=== PATIENT | female | born 1945 | race Caucasian/White ===

== ENCOUNTER 2016-09-08 22:34 | Inpatient (IN) | payer MEDICARE, OTHER ==
[~2016-09-08] VITALS: Ht 155.4 cm; Wt 46.2 kg
[2016-09-13] MEDS ORDERED: COENZYME Q1010 MG PO (11:27)
[2016-09-13] MEDS ORDERED: VITAMIN D2000 UNI1 PO (11:27)
[2016-09-13] MEDS ORDERED: MIRALAX PACKET17 GM PO (11:28)
[2016-09-13] MEDS ORDERED: NORMAL SALINE FL5 ML IV (11:28)
[2016-09-13] MEDS ORDERED: DAILY MULTIPLE1 EAC1 PO (11:28)
[2016-09-13] MEDS ORDERED: SENOKOT DPS8.6 MG PO (11:28)
--- NOTE | 2016-09-13 17:04 | HP ---
ADMIT: 09/09/2016 RM/LOC: 316 [facility] MR#: [id number] [address] [address] JARED ARCHER [address] [place] [address] History and Physical SEX: F AGE: 70 : 1945 DATE OF SERVICE: CHIEF COMPLAINT: Abdominal pain and nausea. HISTORY OF PRESENT ILLNESS: The patient is a very pleasant 70-year-old female. She has a past medical history of adenocarcinoma of the colon. She is status post right hemicolectomy and oophorectomy in May [address] Henao status post chemo and then underwent cytoreduction in February 2014. At that time, they did a loop ileostomy, it was reversed in June of 2014. The patient notes that over the last month or so, abdominal discomfort crampy with some abdominal distention just but feels like she cannot eat and she was seen by Dr. Jacob Ruffin on 19 of August with those symptoms. At that time, she had undergone MR enterography, which showed what was thought to be partial/intermittent obstructive symptoms. Her bowels have been moving okay. At that time, she made some dietary changes as far as liquid diet, soft diet. As you know, things have just worsened. Her bowels have hardly move at all. Nothing for the last couple of days, but now over the last couple of days. She has now started to become nauseated, has not had a great deal. vomiting but pain and distention. She just does not think she can make it to the operative plan for the 18 of September due to poor nutrition, weight loss. She presented to the emergency room with these symptoms last night. This morning, she states it is about the same just mildly nauseated abdominal distention and some belly discomfort. It has been noted her bowels as mentioned have not moved yesterday. No fevers, chills, cough, chest pain, or shortness of breath have been noted. PAST MEDICAL HISTORY: 1. Adenocarcinoma of the colon, tobacco abuse, and she is status post right hemicolectomy, omentumectomy, right oophorectomy, and tumor debulking in May [address] Henao status post FOLFOX and definitive cytoreduction in February 2014, loop ileostomy with takedown in June 19. 2. Chronic stitch hypersensitivity. 3. Tobacco abuse. 4. Chemotherapy induced neuropathy. CURRENT HOME MEDICATIONS: Vitamin D, Culturelle, co-enzyme Q10, multivitamin and Senokot. ALLERGIES: LORAZEPAM. SOCIAL HISTORY: She is a current smoker. Occasional drinker. Lives in [place], [place]. Not . Sister is her next of kin. FAMILY HISTORY: Mother and maternal grandmother both with unknown types of malignancy. REVIEW OF SYSTEMS: As noted above. All systems reviewed and negative. PHYSICAL EXAMINATION: VITAL SIGNS: 96.4, 72, 16, 108/60, 93% on couple of ADMIT: 09/09/2016 RM/LOC: 316 [facility] MR#: [id number] [address] [address] JARED ARCHER [address] [place] [address] History and Physical SEX: F AGE: 70 : 1945 liters by nasal cannula. GENERAL: This is a female, thin. She appears older than her stated age. She is in no apparent distress. She is awake and alert. She is oriented x3. Cooperative with examiner. HEENT: Normocephalic and atraumatic. Mucous membranes are dry. NECK: Supple. LUNGS: Little diminished at the bases but otherwise clear. HEART: Regular. At this point, no obvious murmurs. ABDOMEN: I do notice some slight distention. Bowel sounds are present, but diminished. Noted chronic changes around her prior belly scar. EXTREMITIES: No significant edema. NEUROLOGIC: Cranial nerves are intact II through 12. No focal deficits are noted. LABORATORY AND DIAGNOSTIC STUDIES: Hemoglobin 11.9, white count 16.8, 558,000 platelets. Sodium 140, potassium 3.8, BUN is 17, creatinine 0.7, AST 28, ALT 42, alkaline phosphatase 96, total bilirubin 0.3. CT scan of the abdomen and pelvis done here at [facility] showed multifocal areas of large and small bowel post surgical changes with small bowel and gastric dilatation concerning first distal small bowel obstruction. Small bowel appeared patulous. Question chronic obstruction, no pneumatosis or pneumoperitoneum was noted. ASSESSMENT AND PLAN: 1. Nausea, increasing abdominal discomfort and distention increasing. Question, intermittent/evolving small bowel obstruction. 2. History of colon cancer. Multiple surgical interventions status post adjuvant chemo. 3. Leukocytosis. 4. Weight loss and question malnutrition. At this time, the patient states she is feeling a little better after antiemetics and pain medications, just does not think she can make until her surgery on the . Unclearly with her bowels slowing down. Here I am worried about a course of small bowel obstruction whether be partial and increasing or intermittent. I am going to try to visit with Dr. Jacob Ruffin down at [facility] as there were plans for operative intervention coming up. I will push the CT images down there. Right now, we will keep her n.p.o. on IV fluids for right now and will follow her closely. Eliseo Howell MD/ sona JOB #: [id number] CC: Eliseo Howell, Attending Physician Eliseo Howell, Family Physician
--- NOTE | 2016-09-14 08:46 | ER ---
ADMIT: 09/08/2016 RM/LOC: ER [facility] MR#: [id number] [address] [address] JARED ARCHER [address] [place] [address] Emergency Room Report SEX: F AGE: 70 : 1945 DATE: 09/08/2016 HISTORY OF PRESENT ILLNESS: This is a 70-year-old who comes to the Emergency Department with abdominal distention, pain, bloating, and nausea, sudden onset, several hours prior to presentation. She has had multiple abdominal surgeries for colon cancer including resection, takedown, and reanastomosis. She said the pain initially was severe. It is currently mild. She described it as cramping and sharp, diffuse across her abdomen. She complains of nausea and one episode of vomiting and loss of appetite. It is worse by movement, improved by remaining still. REVIEW OF SYSTEMS: Essentially negative except for the aforementioned complaints. PAST MEDICAL HISTORY: As mentioned, multiple surgeries. She has also had a splenectomy and appendectomy. SOCIAL HISTORY: Does not smoke or drink. PHYSICAL EXAMINATION: GENERAL: Reveals a cachectic-appearing 70-year-old female, no acute distress. HEENT: Normocephalic. LUNGS: Clear to auscultation. CARDIOVASCULAR: Regular rate and rhythm. ABDOMEN: Distended, tympanic with hyperactive bowel tones. No masses or guarding palpable. Surgical scar is present. EXTREMITIES: With some pedal edema. NEUROLOGIC: No focal findings. LABORATORY DATA: Pertinent labs revealed a white count of 17.9, glucose is 121, calcium 8.4. A CT scan revealed small bowel obstruction. DIAGNOSIS: The patient is being admitted with [facility]. Kingsley Rajput MD/ sona JOB #: [id number] CC: Louis Tang MD, Attending Physician Eliseo Howell MD, Family Physician
--- NOTE | 2016-09-20 09:30 | DS ---
ADMIT: 09/09/2016 RM/LOC: 619 [facility] MR#: [id number] ACC#: [id number] [address] [address] JARED ARCHER 14[address] [facility] [place] [address] Discharge Summary SEX: F AGE: 70 : 1945 ADMISSION DATE: 09/09/2016 DISCHARGE DATE: 09/12/2016 DISCHARGE DIAGNOSES: 1. Intermittent partial small bowel obstruction. 2. Severe constipation. 3. Abdominal pain, resolved. 4. Nausea, resolved. 5. Malnutrition, mild to moderate severe protein calorie malnutrition. 6. Weight loss. 7. Hypokalemia, resolved. 8. Hypophosphatemia, resolved. 9. History of colon cancer, status post remote resection and chemotherapy. CONSULTATIONS: None. PROCEDURES: None. REASON FOR ADMISSION: A very pleasant, 70-year-old female. Extensive history of bowel resection following colon cancer, approximately one month of worsening symptoms suspicious for recurrent partial small bowel obstruction. She had previously been seen at [facility] and had planned to undergo exploratory laparoscopy on September 18 but just felt with worsening abdominal pain, distention, nausea that she would not be able to make it, and she underwent imaging with concern for a partial small bowel obstruction, and with her symptoms she was admitted for further evaluation and treatment. For complete details, please see H and P dictated on the day of admission. HOSPITAL COURSE: At the time of admission, the patient was made n.p.o. She was started on IV fluids, IV antibiotics, IV pain medications. I discussed the patient's case with Dr. Jacob Ruffin, her surgical oncologist who had seen her at [facility] and who was planning on taking her to the operating room on the 18 of September. Images were pushed to Dr. Ruffin in [place] for his review, and he really thought they had not changed a whole lot or really were pretty similar to her previous imaging at [facility]. The patient was not having any significant nausea that could not be controlled so NG tube was not placed. We did notice that the one thing on the CT scan was quite a bit of stool in the colon and patient was changed from IV fluids with her weight loss and malnutrition was put on TPN but also started on a bowel regimen. We gave her soap suds enemas, Dulcolax suppositories, as well as MiraLAX from above. The patient's bowels started to move nicely. She did well on the TPN. She was noted to be transiently hypokalemic and hypophosphatemic and that was replaced through the IV. She ambulated and ate without difficulty. The nausea and the pain improved as her bowels improved. A PICC line was placed for TPN, and plans were made to send her home on TPN. As mentioned, she did well with PT and OT and actually did very well taking clears. With her weight loss and her albumin being too high, she did not qualify for Medicare's TPN and since insurance did not cover that, patient was unable to afford home TPN. However, she had tolerated very well with clears and did well with some Boost, and ADMIT: 09/09/2016 RM/LOC: 619 [facility] MR#: [id number] [address] [place] [id number] JARED ARCHER [address] [place] [id number] Discharge Summary SEX: F AGE: 70 : 1945 thoughts were that she would try to make it at home without the TPN, just with plenty of clear liquids and plenty of Boost and oral supplements, small frequent meals of soft foods. The patient, as mentioned, ambulated and ate and thought that was a reasonable plan of action, and she was discharged on 09/12. DISCHARGE DIET: Plenty of clear liquids with supplemental Boost. DISCHARGE ACTIVITY: As tolerated. DISCHARGE MEDICATION LIST: Found on her discharge medication sheet. I did add MiraLAX to be used daily, if not twice a day for her bowels, otherwise the home medications are per home med list. She will have follow up with me within the next 3-5 days and plan on moving forward with surgery as previously scheduled. Eliseo Howell MD/ merissa JOB #: [id number] CC: Eliseo Howell MD, Attending Physician Eliseo Howell MD, Family Physician
== END 2016-09-12 17:15 | disposition home or self-care (01) | DRG 388 ==
LOC: ER 22:34 → 3ICU 09-09 00:39 → 6PED 09-09 00:39
PROVIDERS: ADMIT Internal Medicine
PROC: 02HV33Z Insertion of Infusion Device into Superior Vena Cava, Percutaneous Approach (ICD-10-PCS; principal; 2016-09-10)
PROC: 3E0436Z Introduction of Nutritional Substance into Central Vein, Percutaneous Approach (ICD-10-PCS; 2016-09-10)
DX: K56.60 Unspecified intestinal obstruction (principal); E43 Unspecified severe protein-calorie malnutrition; Z68.1 Body mass index [BMI] 19.9 or less, adult; K59.00 Constipation, unspecified; E87.6 Hypokalemia; E83.39 Other disorders of phosphorus metabolism; F17.210 Nicotine dependence, cigarettes, uncomplicated; D72.829 Elevated white blood cell count, unspecified; Z85.038 Personal history of other malignant neoplasm of large intestine